=== PATIENT | female | born 1985 | race Caucasian/White ===

== ENCOUNTER 2016-11-23 01:20 | Emergency (ER) | payer OTHER ==
[~2016-11-23] VITALS: Ht 167.6 cm; Wt 45.4 kg
[2016-11-23] MEDS ORDERED: CEFTRIAXONE 500 MG VIAL ONE (03:12)
[2016-11-23] MEDS ORDERED: LIDOCAINE /MPF 1% VIAL 5 ML VIAL ONE (03:12)
[2016-11-23] MEDS ORDERED: AZITHROMYCIN 250 MG TABLET ONE (03:12)
[2016-11-23] MEDS ORDERED: ACETAMINOPHEN ES 500 MG TABLET ONE (03:12)
[2016-11-23] MEDS ORDERED: CEFTRIAXONE 500 MG VIAL IM ONE (03:30)
[2016-11-23] MEDS ORDERED: AZITHROMYCIN 250 MG TABLET PO ONE (03:30)
[2016-11-23 03:55] VITALS: BP 119/74
== END 2016-11-23 03:55 | disposition home or self-care (01) ==
LOC: ER 01:22
DX: N73.9 Female pelvic inflammatory disease, unspecified (principal)
CPT/HCPCS: 84703; 96372; 99283; A4606; J0696; J3490; Z7610